=== PATIENT | female | born 1995 ===

== ENCOUNTER 2022-12-18 09:19 | Day surgery (SDC) | payer BC ==
[~2022-12-18 09:19] MED LIST: Albuterol 0.083% 2.5 MG/3 ML Neb Soln NEB PRN; HYDROmorphone 1 MG/ML Syringe IVPUSH PRN; Metoclopramide 10 MG/2 ML SDV IVPUSH PRN; Morphine 2 MG/ML SYRINGE IVPUSH PRN; Naloxone 0.4 MG/ML SDV IVPUSH PRN; Ondansetron 4 MG/2 ML SDV IVPUSH PRN; fentaNYL 50 MCG/ML SDV IVPUSH PRN
[2022-12-18] MEDS ORDERED: Scopolamine 1.5 MG Transdermal Patch ONE (09:51)
[2022-12-18] MEDS ORDERED: Lactated Ringers 1,000 ML IV SCH (10:15)
[2022-12-18] MEDS ORDERED: Propofol 200 MG/20 ML SDV ONE (10:17)
[2022-12-18] MEDS ORDERED: fentaNYL 100 MCG/2 ML SDV ONE (10:18)
[2022-12-18] MEDS ORDERED: Famotidine 20 MG/2 ML SDV ONE (10:24)
[2022-12-18] MEDS ORDERED: Ondansetron 4 MG/2 ML SDV ONE (11:25)
[2022-12-18] MEDS ORDERED: Metoclopramide 10 MG/2 ML SDV ONE (11:25)
[2022-12-18] MEDS ORDERED: Ketorolac 30 MG/ML SDV ONE (11:25)
[2022-12-18] MEDS ORDERED: Dexamethasone 4 MG/ML 5 ML MDV ONE (11:25)
[2022-12-18] MEDS ORDERED: Acetaminophen/oxyCODONE 325-5 MG Tab PO PRN (11:31)
== END 2022-12-18 12:25 | disposition home or self-care (01) ==
LOC: MW.SDS 09:19
PROVIDERS: ATTEND Obstetrics & Gynecology
DX: N84.0 Polyp of corpus uteri (principal)
CPT/HCPCS: 36415; 58563; 85027; J0131; J1100; J1885; J2405; J2704; J2765; J3010; J3490; J7120